=== PATIENT | female | born 1955 | race Caucasian/White ===

== ENCOUNTER 2021-02-04 08:52 | Outpatient (RCR) | payer BC | END 2021-05-05 | disposition home or self-care (01) | LOC: PT | DX: M54.16 Radiculopathy, lumbar region (principal); M48.061 Spinal stenosis, lumbar region without neurogenic claudication; M43.16 Spondylolisthesis, lumbar region ==

== ENCOUNTER → 2021-02-04 | Outpatient (REF) ==
[~2021-02-04] MED LIST: AMITRIPTYLINE25 M1 PO; ATENOLOL PO
== END ==
LOC: LAB 10:17
DX: Z00.8 Encounter for other general examination (principal); Z13.820 Encounter for screening for osteoporosis

== ENCOUNTER → 2021-04-19 | Outpatient (REF) | LOC: LAB 09:37 | DX: E55.9 Vitamin D deficiency, unspecified (principal) ==

== ENCOUNTER → 2021-11-29 | Outpatient (CLI) | payer BC ==
[2021-11-29 10:23] LABS: ALBUMIN 4.3 g/dL (3.4-4.8); POTASSIUM 4.4 mmol/L (3.5-5.1)
[2021-11-29 10:24] LABS: CALCIUM 9.5 mg/dL (8.3-10.5)
[2021-11-29 10:26] LABS: TOTAL PROTEIN 7.6 g/dL (6.2-8.1)
[2021-11-29 10:27] LABS: TOTAL BILIRUBIN 0.6 mg/dL (0.2-1.2)
== END ==
LOC: LAB 09:54
PROVIDERS: Family Medicine
DX: E80.6 Other disorders of bilirubin metabolism (principal)

== ENCOUNTER → 2021-12-25 | Outpatient (CLI) | payer BC ==
[2021-12-25 14:45] LABS: BASO # 0.06 K/mm3 (0.02-0.10); EOS # 0.07 K/mm3 (0.04-0.40); EOS % 1.6 % (1.0-5.0); HEMATOCRIT 39.5 % (37.0-47.0); HEMOGLOBIN 12.8 g/dL (12.5-16.0); MEAN CELL VOLUME 99 fl (78-100); MEAN CORPUSCULAR HEMOGLOBIN 32 pg (27-31); MEAN CORPUSCULAR HGB CONC 32 g/dL (33-37); MEAN PLATELET VOLUME 11.3 fl (7.4-10.4); MONO # 0.43 K/mm3 (0.20-0.80); NEU # 2.22 K/mm3 (1.40-6.50); PLATELET COUNT 206 K/mm3 (130-400); RED BLOOD COUNT 3.98 M/mm3 (4.10-5.30); RED CELL DISTRIBUTION WIDTH 12.7 % (11.5-14.5); WHITE BLOOD COUNT 4.4 K/mm3 (4.8-10.8)
[2021-12-25 14:56] LABS: ALBUMIN 4.8 g/dL (3.4-4.8); POTASSIUM 4.4 mmol/L (3.5-5.1)
[2021-12-25 14:57] LABS: CALCIUM 10.6 mg/dL (8.3-10.5)
[2021-12-25 14:58] LABS: TOTAL PROTEIN 8.4 g/dL (6.2-8.1)
[2021-12-25 15:00] LABS: TOTAL BILIRUBIN 0.6 mg/dL (0.2-1.2)
[2021-12-25 15:39] LABS: PARTIAL THROMBOPLASTIN TIME 21.6 SECONDS (21.0-32.0); PROTHROMBIN TIME 9.9 SECONDS (9.0-12.0)
== END ==
LOC: LAB 14:35
PROVIDERS: Family Medicine
DX: T14.8XXA Other injury of unspecified body region, initial encounter (principal)